=== PATIENT | male | born 1980 | race Caucasian/White ===

== ENCOUNTER 2017-05-19 01:32 | Emergency (ER) | payer SELFPAY ==
[2017-05-19 02:13] VITALS: BP 152/98
[2017-05-19] MEDS ORDERED: ZOFRAN ODT ONE ×2 (02:53→02:55)
[2017-05-19 03:04] LABS: Basophils % (Auto) 0.2 % (0.0-1.8); Eosinophils % (Auto) 0.4 % (0.0-4.3); Hematocrit 48.9 % (35.5-45.6); Hemoglobin 16.5 gm/dl (11.8-15.2); Lymphocytes # (Auto) 2.5 K/mm3 (1.2-5.4); Mean Corpuscular HGB Conc 34 % (32-34); Mean Corpuscular Hemoglobin 27 pg (28-32); Mean Corpuscular Volume 80 fl (84-94); Monocytes # (Auto) 0.7 K/mm3 (0.0-0.8); Monocytes % (Auto) 5.8 % (0.0-7.3); Platelet Count 234 K/mm3 (140-440); Red Blood Count 6.13 M/mm3 (3.65-5.03); Red Cell Distribution Width 13.6 % (13.2-15.2)
[2017-05-19] MEDS ORDERED: ZOFRAN ODT PO ONE (03:16)
[2017-05-19 03:25] LABS: Alanine Aminotransferase 56 units/L (7-56); Albumin 4.6 g/dL (3.9-5); BUN/Creatinine Ratio 21; Blood Urea Nitrogen 17 mg/dL (9-20); Calcium 9.3 mg/dL (8.4-10.2); Hemolysis Index 7
[2017-05-19 05:08] LABS: Amorphous Crystals,Urine 3+; Bilirubin,Urine SM (Negative); Blood,Urine NEG (Negative); Color,Urine Amber (Yellow); Mucus,Urine 3+ /HPF; Nitrite,Urine NEG (Negative)
[2017-05-19 05:20] LABS: Ictotest,Urine Negative (Negative)
== END 2017-05-19 03:00 | disposition left against medical advice (07) ==
LOC: ED 01:32
DX: R11.2 Nausea with vomiting, unspecified (principal); Z53.21 Procedure and treatment not carried out due to patient leaving prior to being seen by health care provider
CPT/HCPCS: 36415; 80053; 81001; 85025; Q0162